=== PATIENT | female | born 1995 | race Asian ===

== ENCOUNTER 2019-07-27 08:14 | Emergency (ER) | payer BC ==
[2019-07-27 08:24] VITALS: BP 117/74
--- NOTE | 2019-07-27 08:45 | UC ---
UC General HPI - HPI Summary HPI Summary: 23 yo female c/o sore throat since Sat (today is Tues) + progressively worse bochyaches, subj temp. ++ cough, usually min productive, but sometimes a lot of white sputum no GI / issues reported. No rash. Works in a public area - History of Current Complaint Chief Complaint: UCGeneralIllness Stated Complaint: HEADACHE,FATIGUE,MUSCLE ACHES Time Seen by Provider: 07/27/19 08:36 Hx Obtained From: Patient Hx Last Menstrual Period: 07/02/19 Pain Intensity: 5 - Allergy/Home Medications Allergies/Adverse Reactions: Allergies Allergy/AdvReac Type Severity Reaction Status Date / Time No Known Allergies Allergy Verified 07/27/19 08:24 Home Medications: Home Medications Amoxicillin PO (*) [Amoxicillin 875 MG (*)] 875 mg PO BID 10 Days #20 tab [Rx] Oseltamivir CAP* [Tamiflu CAP*] 75 mg PO BID #10 cap 07/27/19 [Rx] PMH/Surg Hx/FS Hx/Imm Hx Previously Healthy: Yes - Surgical History Surgical History: None - Family History Known Family History: Positive: None - Social History Alcohol Use: Occasionally Substance Use Type: None Smoking Status (MU): Never Smoked Tobacco - Immunization History Most Recent Tetanus Shot: 08/2012 Review of Systems All Other Systems Reviewed And Are Negative: Yes Constitutional: Positive: Fever, Fatigue Skin: Positive: Negative Eyes: Positive: Negative ENT: Positive: Sore Throat, Nasal Discharge Respiratory: Positive: Cough Cardiovascular: Positive: Negative Gastrointestinal: Positive: Negative Genitourinary: Positive: Negative Motor: Positive: Negative - see hpi Neurovascular: Positive: Negative Musculoskeletal: Positive: Negative - see hpi Neurological/Mental Status: Positive: Headache - advil helps Psychological: Positive: Negative Is Patient Immunocompromised?: No Physical Exam Triage Information Reviewed: Yes Appearance: Well-Nourished - sitting up, looks tired but nad Vital Signs: Initial Vital Signs Temp 97.6 F 07/27/19 08:19 Pulse 89 07/27/19 08:19 Resp 16 07/27/19 08:19 BP 117/74 07/27/19 08:19 Pulse Ox 99 07/27/19 08:19 Vital Signs Reviewed: Yes Eye Exam: Normal ENT: Positive: Pharyngeal erythema - + post pharyng redness, no sores / exudates , uvula midline, Nasal congestion, TM dull Neck exam: Normal Neck: Positive: Supple, Nontender, No Lymphadenopathy Respiratory Exam: Other - + rhonchorus cough Respiratory: Positive: Chest non-tender, Lungs clear, Normal breath sounds, No respiratory distress, No accessory muscle use Cardiovascular Exam: Normal Cardiovascular: Positive: RRR, Pulses Normal, Brisk Capillary Refill Musculoskeletal Exam: Normal Neurological Exam: Normal - grossly nonfocal Psychological Exam: Normal - nad Skin Exam: Normal - nondiaphoretic no visible or reported rash Course/Dx - Course Course Of Treatment: Rapid influenza Positive A Rapid RST Postive reviewed coa / tx plan questions as posed answered to the best of my ability - Diagnoses Provider Diagnosis: Influenza, Strep throat Discharge ED - Sign-Out/Discharge Documenting (check all that apply): Patient Departure All imaging exams completed and their final reports reviewed: No Studies - Discharge Plan Condition: Stable Disposition: HOME Patient Education Materials: Influenza (ED), Strep Throat (ED) Forms: *Work Release Referrals: No Primary Care Phys,NOPCP [Primary Care Provider] - Additional Instructions: Hydrate. Rest. Please seek medical attention for worse or new problems. - Billing Disposition and Condition Condition: STABLE Disposition: Home
[2019-07-27 09:04] LABS: Influenza A Molecular POSITIVE (Negative)
== END 2019-07-27 09:25 | disposition home or self-care (01) ==
LOC: UCEAST 08:14
DX: J10.1 Influenza due to other identified influenza virus with other respiratory manifestations (principal); J02.0 Streptococcal pharyngitis
CPT/HCPCS: 87651; 99202; G0463